=== PATIENT | female | born 1995 | race American Indian/Alaskan Native ===

== ENCOUNTER 2017-03-28 13:40 | Emergency (ER) | payer SELFPAY ==
[2017-03-28 15:04] LABS: Basophils % (Auto) 0.7 % (0.0-1.8); Eosinophils % (Auto) 0.9 % (0.0-4.3); Hematocrit 41.6 % (30.3-42.9); Hemoglobin 13.7 gm/dl (10.1-14.3); Mean Corpuscular HGB Conc 33 % (30-34); Mean Corpuscular Hemoglobin 29 pg (28-32); Mean Corpuscular Volume 89 fl (79-97); Platelet Count 187 K/mm3 (140-440); Red Cell Distribution Width 13.2 % (13.2-15.2)
[2017-03-28 15:22] LABS: Alanine Aminotransferase 11 units/L (7-56); Albumin 4.5 g/dL (3.9-5); Albumin/Globulin Ratio 1.3 %; Alkaline Phosphatase 50 units/L (35-129); Anion Gap 17 mmol/L; BUN/Creatinine Ratio 14.28; Blood Urea Nitrogen 10 mg/dL (7-17); Calcium 9.4 mg/dL (8.4-10.2); Carbon Dioxide 26 mmol/L (22-30); Chloride 101.1 mmol/L (98-107); Glucose 92 mg/dL (65-100); Lipase 21 units/L (13-60); Sodium 140 mmol/L (137-145); Total Protein 8.1 g/dL (6.3-8.2)
[2017-03-28 15:36] LABS: Bacteria,Urine 1+ /HPF (Negative); Bilirubin,Urine NEG (Negative); Blood,Urine LG (Negative); Ketones,Urine NEG (Negative); Leukocyte Esterase,Urine LG (Negative); Mucus,Urine FEW /HPF; Nitrite,Urine POS (Negative)
[2017-03-28] MEDS ORDERED: TYLENOL PO ONE (20:24)
[2017-03-28 21:56] VITALS: BP 139/88
[2017-03-28] MEDS ORDERED: ROCEPHIN IM ONE (23:20)
[2017-03-28] MEDS ORDERED: XYLOCAINE 1% MPF 5 mL INFILTRATI ONE (23:20)
[2017-03-28] MEDS ORDERED: TORADOL IM ONE (23:20)
[2017-03-28] MEDS ORDERED: ZOFRAN IV ONE (23:20)
--- NOTE | 2017-03-28 23:27 | Emergency Department Report ---
HPI - General Chief Complaint: Abdominal Pain Time Seen by Provider: 03/28/17 23:13 - HPI HPI: Room 17 The patient is a 21-year-old female presenting with a chief complaint of left flank pain. Patient states for the past 3 days she has had dysuria and hematuria. The patient states she took a home UTI tests which came back positive so she took Azo. The patient states this morning she developed left flank pain nausea and vomiting. Patient denies fever. The patient currently gives her pain a score of 10/10 Location: Left flank pain Duration: 3 days Quality: Pain Severity:10/10 Modifying factors: [see above] Context: [see above] Mode of transportation: The patient drove herself to the emergency department and there are no visitors present ED Past Medical Hx - Past Medical History Previous Medical History?: No - Surgical History Past Surgical History?: No - Family History Family history: no significant - Social History Smoking Status: Never Smoker Substance Use Type: None (denies illicit drug use) - Medications Home Medications: Home Medications Medication Instructions Recorded Confirmed Last Taken Type Ciprofloxacin HCl [Ciprofloxacin 500 mg PO Q12HR #20 tab 03/28/17 Unknown Rx TAB] HYDROcodone/APAP 5-325 [[place] 1 - 2 each PO Q6HR PRN #14 tablet 03/28/17 Unknown Rx 5/325] Ibuprofen [Motrin 800 MG tab] 800 mg PO Q8HR PRN #20 tablet 03/28/17 Unknown Rx Promethazine [Phenergan TAB] 25 mg PO Q6HR PRN #20 tab 03/28/17 Unknown Rx ED Review of Systems ROS: Stated complaint: STOMACH PAIN Other details as noted in HPI Comment: All other systems reviewed and negative Constitutional: denies: chills, fever Eyes: denies: eye pain, eye discharge, vision change ENT: denies: ear pain, throat pain Respiratory: denies: cough, shortness of breath, wheezing Cardiovascular: denies: chest pain, palpitations Endocrine: no symptoms reported Gastrointestinal: abdominal pain, nausea, vomiting Genitourinary: dysuria, hematuria Musculoskeletal: back pain Skin: denies: rash, lesions Neurological: denies: headache, weakness, paresthesias Psychiatric: denies: anxiety, depression Hematological/Lymphatic: denies: easy bleeding, easy bruising Physical Exam - Physical Exam Vital Signs: Vital Signs 03/28/17 03/28/17 03/28/17 14:24 20:28 21:56 Temperature 98.5 F 98.1 F 98.6 F Pulse Rate 89 68 85 Respiratory 16 18 20 Rate Blood Pressure 141/93 134/87 Blood Pressure 139/88 [Left] O2 Sat by Pulse 100 100 Oximetry 03/28/17 21:57 Temperature Pulse Rate Respiratory 20 Rate Blood Pressure Blood Pressure [Left] O2 Sat by Pulse 100 Oximetry Physical Exam: GENERAL: The patient is well-developed well-nourished female lying on stretcher not appearing to be in acute distress. [] HEENT: Normocephalic. Atraumatic. Extraocular motions are intact. Patient has moist mucous membranes. NECK: Supple. Trachea midline CHEST/LUNGS: Clear to auscultation. There is no respiratory distress noted. HEART/CARDIOVASCULAR: Regular. There is no tachycardia. There is no gallop rub or murmur. ABDOMEN: Abdomen is soft, with tenderness to palpation in the left lower quadrant suprapubic and left upper quadrant. Patient has normal bowel sounds. There is no abdominal distention. SKIN: There is no rash. There is no edema. There is no diaphoresis. NEURO: The patient is awake, alert, and oriented. The patient is cooperative. The patient has normal speech MUSCULOSKELETAL: There is left CVA tenderness. There is no limitation range of motion. There is no evidence of acute injury. ED Course Vital Signs 03/28/17 03/28/17 03/28/17 14:24 20:28 21:56 Temperature 98.5 F 98.1 F 98.6 F Pulse Rate 89 68 85 Respiratory 16 18 20 Rate Blood Pressure 141/93 134/87 Blood Pressure 139/88 [Left] O2 Sat by Pulse 100 100 Oximetry 03/28/17 21:57 Temperature Pulse Rate Respiratory 20 Rate Blood Pressure Blood Pressure [Left] O2 Sat by Pulse 100 Oximetry ED Medical Decision Making - Lab Data Result diagrams: 03/28/17 14:43 03/28/17 14:43 Laboratory Tests 03/28/17 03/28/17 03/28/17 14:43 14:43 14:49 WBC 12.0 H RBC 4.70 Hgb 13.7 Hct 41.6 MCV 89 MCH 29 MCHC 33 RDW 13.2 Plt Count 187 Lymph % (Auto) 17.1 [place] % (Auto) 8.7 H Eos % (Auto) 0.9 Baso % (Auto) 0.7 Lymph # 2.0 [place] # 1.0 H Eos # 0.1 Baso # 0.1 Seg Neutrophils % 72.6 H Seg Neutrophils # 8.7 H Sodium 140 Potassium 4.0 Chloride 101.1 Carbon Dioxide 26 Anion Gap 17 BUN 10 Creatinine 0.7 Estimated GFR > 60 BUN/Creatinine Ratio 14.28 Glucose 92 Calcium 9.4 Total Bilirubin 0.70 AST 17 ALT 11 Alkaline Phosphatase 50 Total Protein 8.1 Albumin 4.5 Albumin/Globulin Ratio 1.3 Lipase 21 Urine Color Inés Urine Turbidity Clear Urine pH 7.0 Ur Specific [place] 1.013 Urine Protein 30 mg/dl Urine Glucose (UA) Neg Urine Ketones Neg Urine Blood Lg Urine Nitrite Pos Ur Reducing Substances Not Reportable Urine Bilirubin Neg Urine Ictotest Not Reportable Urine Urobilinogen 2.0 Ur Leukocyte Esterase Lg Urine WBC (Auto) 129.0 H Urine RBC (Auto) 30.0 U Epithel Cells (Auto) 4.0 Urine Bacteria (Auto) 1+ Urine Mucus Few Urine HCG, Qual Negative - Differential Diagnosis pyelonephritis, renal colic, UTI Critical care attestation.: If time is entered above; I have spent that time in minutes in the direct care of this critically ill patient, excluding procedure time. ED Disposition Clinical Impression: Acute pyelonephritis, Left flank pain, Dysuria Disposition: DISCHARGED TO HOME OR SELFCARE Is pt being admited?: No Does the pt Need Aspirin: No Condition: Stable Instructions: Abdominal Pain (ED), Acute Pyelonephritis (ED), Flank Pain (ED) Additional Instructions: Return to the emergency department immediately should you develop worsening symptoms, fever, inability to tolerate food or liquid or any other concerns. Prescriptions: Ciprofloxacin HCl [Ciprofloxacin TAB] 500 mg PO Q12HR #20 tab HYDROcodone/APAP 5-325 [[place] 5/325] 1 - 2 each PO Q6HR PRN #14 tablet PRN Reason: Pain Ibuprofen [Motrin 800 MG tab] 800 mg PO Q8HR PRN #20 tablet PRN Reason: Pain Promethazine [Phenergan TAB] 25 mg PO Q6HR PRN #20 tab PRN Reason: Nausea Referrals: PRIMARY CARE, [Primary Care Provider] - 3-5 Days MEDINA WHALEN MD [Staff Physician] - 3-5 Days (Dr. Whalen is a urologist. Please follow up with him for further evaluation) Time of Disposition: 23:27
[2017-03-29] MEDS ORDERED: XYLOCAINE 1% 20 mL ONE (00:30)
== END 2017-03-29 00:53 | disposition home or self-care (01) ==
LOC: ED 13:40
DX: N12 Tubulo-interstitial nephritis, not specified as acute or chronic (principal); R30.0 Dysuria
CPT/HCPCS: 36415; 80053; 81001; 81025; 83690; 85025; 87076; 87086; 87186; 96372; 96374; 99283; J0696; J1885; J2405